=== PATIENT | female | born 1980 ===

== ENCOUNTER 2021-03-26 08:42 | Day surgery (SDC) | payer OTHER | END 2021-03-26 17:15 | disposition home or self-care (01) | LOC: AMB-ENDOS 08:42 | PROVIDERS: ATTEND Colon & Rectal Surgery | DX: K57.32 Diverticulitis of large intestine without perforation or abscess without bleeding (principal); K64.0 First degree hemorrhoids; Z20.822 Contact with and (suspected) exposure to COVID-19 ==